=== PATIENT | male | born 1980 | race Caucasian/White ===

== ENCOUNTER 2020-11-19 19:49 | Emergency (ER) | payer BC ==
[~2020-11-19] VITALS: Ht 175.3 cm; Wt 104.3 kg
[2020-11-19 19:55] VITALS: BP_SYST 157
--- NOTE | 2020-11-19 20:17 | NUR ---
Placed in room 07 . Placed on manager monitoring, blood pressure machine and pulse oximeter. To gown for exam. Side rails up. Report given to DORITA Mtz
--- NOTE | 2020-11-19 20:19 | NUR ---
ER at bedside examining patient.
--- NOTE | 2020-11-19 20:22 | NUR ---
PT A&O X4 FROM HOME C/O CONTINUOUS NONRADIATING CHEST PAIN X2-3 DAYS THAT INTENSIFIED EARLIER TODAY. PT DENIES N/V/D AND SHORTNESS OF BREATH. PT REPORTS HX OF HYPERTENSION BUT HAS NOT BEEN TAKING LISINOPRIL FOR SEVERAL MONTHS.
--- NOTE | 2020-11-19 20:43 | NUR ---
RADIOLOGY AT BEDSIDE FOR CHEST XRAY.
[2020-11-19 20:48] LABS: BASOPHILS % (AUTO) 0.5 % (0.0-2.0); EOSINOPHILS # (AUTO) 0.1 K/uL (0.0-0.4); EOSINOPHILS % (AUTO) 2.1 % (0.0-4.0); HEMATOCRIT 43.2 % (36-54); HEMOGLOBIN 14.7 g/dL (14.0-18.0); LYMPHOCYTES # (AUTO) 1.5 K/uL (1.0-5.5); LYMPHOCYTES % (AUTO) 22.1 % (20.5-51.5); MEAN CORPUSCULAR HEMOGLOBIN 27 pg (27-31); MEAN CORPUSCULAR HGB CONC 34 % (32-36); MEAN CORPUSCULAR VOLUME 80 fL (79.0-98.0); MONOCYTES # (AUTO) 0.5 K/uL (0.0-1.0); MONOCYTES % (AUTO) 7.5 % (1.7-9.3); NEUTROPHILS # (AUTO) 4.6 K/uL (1.8-7.7); NEUTROPHILS % (AUTO) 67.8 % (40.0-70.0); PLATELET COUNT (AUTO) 198 K/uL (130-430); RED BLOOD CELL COUNT(AUTO) 5.39 MIL/uL (4.2-6.2); RED CELL DISTRIBUTION WIDTH 13.8 % (9.0-15.0); WHITE BLOOD COUNT (AUTO) 6.8 K/uL (4.8-10.8)
[2020-11-19 21:06] LABS: CALCIUM 8.7 mg/dL (8.4-11.0); POTASSIUM 4.1 mmol/L (3.5-5.1); PROTHROMBIN TIME 9.9 SECS (9.5-12.5)
[2020-11-19 21:07] LABS: CREATININE 1.24 mg/dL (0.55-1.30)
[2020-11-19 21:22] LABS: ALBUMIN 3.8 g/dL (3.4-4.8); TOTAL BILIRUBIN 1.1 mg/dL (0.0-1.0)
--- NOTE | 2020-11-19 21:44 | NUR ---
Patient given written and verbal discharge instructions and verbalizes understanding. ER MD discussed with patient the results and treatment provided. Patient in stable condition. ID arm band removed. no Rx of given. Patient educated on pain management and to follow up with PMD. Pain Scale 2/10. Opportunity for questions provided and answered. Medication side effect fact sheet provided.
[2020-11-19 21:45] VITALS: BP_SYST 135
== END 2020-11-19 21:44 | disposition home or self-care (01) ==
LOC: SED 19:49
DX: R07.9 Chest pain, unspecified (principal); I10 Essential (primary) hypertension
CPT/HCPCS: 36415; 71045; 80053; 84484; 85025; 85610-TC; 85730-TC; 93005; 99285